=== PATIENT | female | born 1960 | race Asian ===

== ENCOUNTER 2020-03-20 14:51 | Emergency (ER) | payer BC, OTHER ==
[~2020-03-20] VITALS: Ht 162.6 cm; Wt 51.7 kg
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
--- NOTE | 2020-03-20 15:19 | NUR ---
AT BEDSIDE FOR EVAL.
--- NOTE | 2020-03-20 15:22 | NUR ---
PT IS WHEELED TO CT SCAN VIA [facility].
[2020-03-20 17:12] VITALS: BP 127/84
--- NOTE | 2020-03-20 17:12 | NUR ---
Patient discharged to home in stable condition. Written and verbal after care instructions given. Patient verbalizes understanding of instruction.
== END 2020-03-20 17:13 | disposition home or self-care (01) ==
LOC: ER 14:53
DX: S19.80XA Other specified injuries of unspecified part of neck, initial encounter (principal); M79.10 Myalgia, unspecified site; V49.59XA Passenger injured in collision with other motor vehicles in traffic accident, initial encounter; Y93.89 Activity, other specified; Y92.413 State road as the place of occurrence of the external cause; Y99.8 Other external cause status
CPT/HCPCS: 70450-TC; 72125-TC